=== PATIENT | female | born 1980 | race Caucasian/White ===

== ENCOUNTER 2025-02-26 08:45 | Outpatient (OUT) | payer OTHER, SELFPAY ==
--- OUTSIDE RECORDS SUMMARY | 2025-02-12 12:00 | XMS_ITS ---
Author Organization [facility] Address [address] [place], [place] [id number] Care Team Providers Care Global Coordinator Name Role Phone Devorah Lewis Primary Care Provider REASON FOR VISIT Knee pain Social History Sex Assigned At : Social History Observation Description Sex Assigned At Female Encounters Encounter Location Date Provider Diagnosis Main [address] [place], [place] [phone] 02/12/2025 Devorah Lewis Plan Of Treatment Next Appt Details Provider Name:Devorah Lewis , 05/25/2025 04:45:00 PM, [address] [place], [place], [phone], Progress Notes * Chela CHANEL EDOB:[birth year] (45 yo F)Acc No.[id number]:02/12/2025 Medical Note Patient: Kelin SHINEortega Junior :?Devorah BradshawhuseyinDOB:1980???Age:44 Y???Sex: FemaleDate:02/12/2025Phone:[phone]:[address] [place], [place] [id number] Subjective: * Chief Complaints: * 1 . Knee pain. * Medical History: Objective: * Vitals: Assessment: Plan: * Treatment: * Billing Information: * Visit Code: * Procedure Codes: * Electronic signature of JUSTINE Carlson on 02/26/2025 at 08:55 AM EDTSign off status: Pending * Provider: Og Lewis Date: 1 Generated for Printing/Faxing/eTransmitting on:?02/26/2025 08:55 AM EDT
--- OUTSIDE RECORDS SUMMARY | 2025-02-15 06:24 | XMS_ITS | Encounter Summary ---
Author Organization [facility] Address [id number] [place] [address] Care Team Providers Care Pants Cutter Name Role Phone Services, [facility] Primary Care Provider Reason for Visit * ReasonCommentsKnee Pain Encounter Details DateTypeDepartmentCare Team (Latest Contact Info)Ffrnfurnvzn01/19/2025 6:24 AM EDT - 02/15/2025 7:57 AM EDTEmergenReg[facility] - [facility] [address] [place] [id number] De Marie MD [address] [address] [place] [address] Acute pain of right knee (Primary Dx) Discharge Disposition: Home Social History Tobacco UseTypesPacks/DayYears UsedDateSmoking Tobacco: NeverSmokeless Tobacco: NeverAlcohol UseStandard Drinks/WeekCommentsNo0 (1 standard drink = 0.6 oz pure alcohol)PHQ-2AnswerDate RecordedTotal Pxqnn509ChildcareAnswerDate KnfhehmzKdquqgelhEqblgii68/10/2019EmploymentAnswerDate RecordedEmploymentUnknown 10/07/2018Hunger ScreeningAnswerDate RecordedWithin the past 12 months we worried whether our food would run out before we got money to buy more.Never True02/15/2025Within the past 12 months the food we bought just didn't last and we didn't have money to get more.Never True02/15/2025Purpose - LifeAnswerDate RecordedPurpose and direction in anykVjemwgf18/19/2021CommentsNoSex and Gender InformationValueDate RecordedSex Assigned at BirthNot on fileLegal Sex Zzcomu5312/01/2014 2:29 PM EDTGender IdentityNot on fileSexual OrientationNot on filedocumented as of this encounter Last Filed Vital Signs Vital SignReadingTime TakenCommentsBlood Jiaidqpa782/9002/15/2025 6:30 AM EDT Orcrr797602/15/2025 6:30 AM IIKHfuzpenuena79.4 ??C (97.6 ??F)02/15/2025 6:30 AM EDTRespiratory Sdtv1682 6:30 AM EDTOxygen Qrmnikxsfk12%02/15/2025 6:30 AM EDTInhaled Oxygen Concentration--Owywfc569 kg (280 lb)02/15/2025 6:30 AM EDT Cxpdce088.1 cm (5' 5 )02/15/2025 6:30 AM EDTBody Mass Index46.5902/15/2025 6:30 AM EDTdocumented in this encounter Discharge Instructions * Discharge Instructions* De Marie MD - 02/15/2025 7:07 AM EDT As we discussed please call and schedule follow up with your primary care physician in the next fewdays for re-evaluation and to discuss today's findings, your exam today suggest the knee pain may be from a ligament injury, possibly the lateral meniscus, further evaluation with MRI or other imaging may be needed if your symptoms are not improving. As we discussed I do recommend resting for the next few days, warm compress, continue the naproxen and previously prescribed steroid medication. I have also given a prescription for muscle relaxers, these medications can make you sleepy/drowsy, it is important not to drive or operate machinery while taking this medication. If you develop any redness or swelling of the knee, fevers, inability to move or bend your knee, difficulty breathing, any other worsening or concerning symptoms return to the emergency department. Below is a copy of your x-ray from today, please bring this with you when you follow up XR KNEE RT 3 VWS HISTORY: R knee pain, TTP lateral aspect, atraumatic. COMPARISON: none IMPRESSION: No acute fracture or dislocation. No sizable effusion. Degenerative changes of the knee, cortical irregularity is about the intracondylar eminence, possible sequelae prior ligamentous injury. Moderate medial compartment joint space loss. Soft tissue varicose veins. Finalized by Ahsan Rendon MD on 02/15/2025 7:30 AM * Attachments The following attachments cannot be sent through Care Everywhere. * Knee Pain ED (Persian) documented in this encounter Medications at Time of Discharge MedicationSigDispense QuantityRefillsLast FilledStart DateEnd Date cyclobenzaprine (FLEXERIL) 10 mg tablet Take 1 tablet (10 mg total) by mouth 2 (two) times a day as needed for muscle spasms (pain). 10 tablet 02/15/2025 diclofenac sodium (VOLTAREN) 1 % gel Apply 2 g topically in the morning and 2 g at noon and 2 g in the evening and 2 g before bedtime. 100 g 02/15/2025 hydroCHLOROthiazide (MICROZIDE) 12.5 mg capsule Take 1 capsule (12.5 mg total) by mouth daily. ibuprofen (MOTRIN) 600 mg tablet 3 (three) times a day. meclizine (ANTIVERT) 25 mg tablet Take 1 tablet (25 mg total) by mouth 3 (three) times a day as needed for dizziness. 30 tablet 07/23/2022 metFORMIN (GLUCOPHAGE) 500 mg tablet Take 2 tablets (1,000 mg total) by mouth in the morning and 2 tablets (1,000 mg total) before bedtime. montelukast (SINGULAIR) 10 mg tablet Take 1 tablet (10 mg total) by mouth nightly.documented as of this encounter ED Notes * De Marie MD - 02/15/2025 6:29 AM EDT Images from the original note were not included. [facility] Pt Name: Chela Grove Birthdate: 1980 Chief Complaint: Chief Complaint Patient presents with Knee Pain History of Present Illness: Patient is a 44-year-old female, history of hypothyroidism, presenting with right knee pain. Patient reports right knee pain, has been ongoing for awhile, with progressive worsening, worse with bearing weight, reports anterior and lateral knee pain, sharp/deep pain. Patient states she did see PCP recently and was prescribed medication which have not helped, and they discussed at that appointment that they would order x-ray if symptoms not improving, however patient states pain worsened before she could follow up to go to work because of the pain. Patient denies any associated fevers, numbness/weakness, chest pain, difficulty breathing, any other symptoms. Patient denies any specific injury or trauma, states pain was gradual onset. Denies any previous injury to that knee. 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[facility]) Past Surgical History: Past Surgical History: Procedure Laterality Date TONSILLECTOMY WISDOM TOOTH EXTRACTION Family History: Family History Problem Relation Age of Onset Hypothyroidism Mother Diabetes Mother Hypertension Mother Hypertension Father Arthritis Paternal Grandmother Hypertension Paternal Grandmother Diabetes Paternal Grandfather Arthritis Paternal Grandfather Diabetes Brother Breast cancer Neg Hx Social History: Social History Socioeconomic History Marital status: Tobacco Use Smoking status: Never Smokeless tobacco: Never Vaping Use Vaping status: Never Used Substance and Sexual Activity Alcohol use: No Drug use: No Sexual activity: Never Partners: Male control/protection: None Other Topics Concern Caffeine Use Yes Social Drivers of Health Food Insecurity: No Food Insecurity (02/15/2025) Hunger Screening Food Insecurity - Worry: Never True Food Insecurity - Inability: Never True Review of Systems: Review of Systems All other systems are reviewed and are negative except as noted. Physical Exam: ED Triage Vitals [02/15/25 0630] Temp Heart Rate Resp BP SpO2 36.4 ??C (97.6 ??F) 73 18 175/90 95 % Temp Source Heart Rate Source Patient Position BP Location FiO2 (%) Oral Monitor Sitting Left arm -- Vitals: 02/15/25 0630 BP: 175/90 Temp: 36.4 ??C (97.6 ??F) TempSrc: Oral Pulse: 73 Resp: 18 SpO2: 95% MAP (mmHg): 114 Height: 165.1 cm (5' 5 ) Weight: 127 kg (280 lb) 95 Physical Exam Vitals and nursing note reviewed. Constitutional: General: She is not in acute distress. HENT: Head: Normocephalic and atraumatic. Right Ear: External ear normal. Left Ear: External ear normal. Nose: Nose normal. Mouth/Throat: Mouth: Mucous membranes are moist. Eyes: Extraocular Movements: Extraocular movements intact. Conjunctiva/sclera: Conjunctivae normal. Cardiovascular: Rate and Rhythm: Normal rate and regular rhythm. Pulses: Normal pulses. Heart sounds: Normal heart sounds. Pulmonary: Effort: Pulmonary effort is normal. Breath sounds: Normal breath sounds. Abdominal: General: Abdomen is flat. Musculoskeletal: General: Tenderness present. No swelling. Normal range of motion. Cervical back: Normal range of motion. Right lower leg: No edema. Left lower leg: No edema. Comments: Right knee with full active range of motion, no instability, tenderness to the prepatellar area and lateral knee joint, no swelling or erythema/warmth, sensation intact, 2+ DP/PT pulse. Positive Rosa Maria test with internal rotation. Negative anterior/posterior drawer. Neurological: Mental Status: She is alert. Procedure: Procedures Re-evaluation: Re-Evaluation Medical Decision Making Patient is a 44-year-old female, history as above, presenting with gradual onset, atraumatic right knee pain. Vitals notable for hypertension, otherwise unremarkable. On exam there is no significant instability, no clinical signs of septic arthritis or DVT, neurovascularly intact. Positive McMurraytest with concern for possible lateral meniscus injury. X-ray performed showing degenerative changes as well as cortical irregularity with possible sequelae of prior ligamentous injury. Relaxer for pain control. I discussed likely due to arthritis versus possible meniscus injury, I discussed expectant management, close follow up with PCP and strict return precautions, discussed further imaging may be needed if symptoms are not improving. Patient was comfortable with this plan, stable for discharge home, prescription for muscle relaxers and Voltaren gel sent to pharmacy. I discussed safe use of muscle relaxers and not to drive or operate heavy machinery while using this. Amount and/or Complexity of Data Reviewed Radiology: ordered and independent interpretation performed. Decision-making details documented in ED Course. Details: Imaging was independently viewed and is notable for XR R knee with no acute fracture or dislocation, no large joint effusion, degenerative changes present. However, pending official radiologist read. Risk Prescription drug management. ED Course: ED Course as of 02/17/2557 [place] Feb 15, 2025 0733 X-ray knee right 3 views XR KNEE RT 3 VWS HISTORY: R knee pain, TTP lateral aspect, atraumatic. COMPARISON: none IMPRESSION: No acute fracture or dislocation. No sizable effusion. Degenerative changes of the knee, cortical irregularity is about the intracondylar eminence, possible sequelae prior ligamentous injury. Moderate medial compartment joint space loss. Soft tissue varicose veins. Finalized by Ahsan Rendon MD on 02/15/2025 7:30 AM [EW] 0733 Re-evaluated patient, discussed findings, discussed suspicion for possible meniscus injury, arthritis, discussed close follow up with PCP, expectant management, strict return precautions, patient is comfortable with this plan, stable for discharge home. [EW] ED Course User Index [EW] De Marie MD Clinical Impressions as of 02/17/2557 Acute pain of right knee . ED Disposition ED Disposition Discharge Date/Time [place] Feb 15, 2025 7:40 AM Comment At the time of discharge, the plan has been discussed with the patient regarding the diagnosis and prognosis. All questions have been answered. Verbal discharge instructions were discussed with the patient. The patient has been advised to follow up w ith their Primary Care Provider within 1-2 days.The patient was also instructed to return to the ED if their symptoms change, worsen, new symptoms a rise or if they have any additional concerns. Medications Prescribed this Visit Sig cyclobenzaprine (FLEXERIL) 10 mg tablet Take 1 tablet (10 mg total) by mouth 2 (two) times a day asneeded for muscle spasms (pain). diclofenac sodium (VOLTAREN) 1 % gel Apply 2 g topically in the morning and 2 g at noon and 2 g in the evening and 2 g before bedtime. . Please note that portions of this note were completed with a voice recognition program. Efforts were made to edit the dictations but occasionally words are mis-transcribed. De Marie MD 02/17/25 0105 documented in this encounter Plan of Treatment Not on file documented as of this encounter Procedures Procedure NamePriorityDate/TimeAssociated DiagnosisCommentsXR KNEE RT 3 VWSSTAT 02/15/2025 7:00 AM EDT documented in this encounter Results * X-ray knee right 3 views (02/15/2025 7:00 AM EDT)Anatomical RegionLaterality ModalityLower Extremities, MSK, KneeRightComputed RadiographySpecimen (Source) Anatomical Location / LateralityCollection Method / VolumeCollection Time Received Time02/15/2025 7:30 AM EDT Narrative 02/15/2025 7:30 AM EDT XR KNEE RT 3 VWS HISTORY: R knee pain, TTP lateral aspect, atraumatic. COMPARISON: none IMPRESSION: No acute fracture or dislocation. No sizable effusion. Degenerative changes of the knee, cortical irregularity is about the intracondylar eminence, possible sequelae prior ligamentous injury. Moderate medial compartment joint space loss. Soft tissue varicose veins. Finalized by Ahsan Rendon MD on 02/15/2025 7:30 AM Procedure Note Ahsan Rendon MD - 02/15/2025 XR KNEE RT 3 VWS HISTORY: R knee pain, TTP lateral aspect, atraumatic. COMPARISON: none IMPRESSION: No acute fracture or dislocation. No sizable effusion. Degenerative changes of the knee, cortical irregularity is about the intracondylar eminence, possible sequelae prior ligamentous injury.Moderate medial compartment joint space loss. Soft tissue varicose veins. Finalized by Ahsan Rendon MD on 02/15/2025 7:30 AM Authorizing ProviderResult TypeResult StatusDe Marie MDIMG DIAGNOSTIC IMAGING ORDERABLESFinal Result documented in this encounter Visit Diagnoses Diagnosis Acute pain of right knee- Primary documented in this encounter Administered Medications Medication OrderMAR ActionAction DateDoseRateSite cyclobenzaprine (FLEXERIL) tablet 10 mg 10 mg, oral, Once, On 02/15/25 at 0642, For 1 dose Given02/15/2025 6:57 AM EDT10 mgdocumented in this encounter Active and Recently Administered Medications Times are shown in EDT.Medication Order/ cyclobenzaprine (FLEXERIL) tablet 10 mg (COMPLETED) 10 mg, oral, Once, On 02/15/25 at 0642, For 1 dose * 0657 (Given - Provider: Jarvis Pascal RN) documented in this encounter Additional Health Concerns AssessmentNoted TimePHQ-9 Depression Total Score: 11:50 AM EDT documented as of this encounter Care Teams Team MemberRelationshipSpecialtyStart DateEnd Date [facility], [facility] [address] [place], [place] PCP - GeneralFamily Medicine07/23/22documented as of this encounter
--- OUTSIDE RECORDS SUMMARY | 2025-02-16 09:15 | XMS_ITS ---
Author Organization [facility] vices Address [address] [place], [place] [address] Care Team Providers Care Gear Setter Name Role Phone Joshua Devorah Primary Care Provider [phone] Allergies Allergen (clinical drug ingredient) Drug/Non Drug Allergy documented on EMR Reaction Allergy Type Onset Date Status SEASONAL ALLERGIES (uncoded)Comments: (Fall and Winter worse per patient)Allergy 12/29/2020ctive Reason For Referral Reason PLS EVAL & TREAT, PT COMPLETED XR, ORDERED MRI AT THIS TIME, AWAITING RESULTS Diagnosis 1 Right knee pain (M25 .561) Referral Organization Main Referring Provider First Name Devorah Referring Provider Last Name Joshua Referred Provider [facility] nt Referred Provider Specialty Orthopedics Referral Priority Routine REASON FOR VISIT [facility] ER f/u, 02-15-25, knee pain Medications Medication SIG (Take, Route, Frequency, Duration) Notes Start Date End Date Status metFORMIN HCl ER 500 MG Take 2 tablets w ith food Orally twice daily; Duration: 90 days ActiveMontelukast Sodium 10 MG1 tablet Orally Once a day; Duration: 30 days ActiveCyanocobalamin 250 MCG1 tablet Orally Once a day; Duration: 90 days 10/03/2023ctiveMedical Compression Socks -1 pair daily; Duration: 30 daysknee- high, closed toe, 20-11peFc5406/16/2022ctiveMisc. Devices -PLEASE DISPENSE APPROPRIATE SIZE CRUTCHES FOR PT; Duration: 90 daysR KNEE PAIN AND DIFFICULTY WALKING D/T INSTABLE GAIT5ActiveVitamin DActivehydroCHLOROthiazide 12.5 MG1 tablet in the morning Orally Once a day; Duration: 90 daysActivepredniSONE 20 MG1 tablet with food or milk Orally Once a day; Duration: 7 days02/11/2025 ActiveCyclobenzaprine HCl 10 MG1 tablet at bedtime as needed Orally Once a day; Duration: 30 days02/11/2025tiveNaproxen 500 MG1 tablet with food or milk as needed Orally every 12 hrs; Duration: 30 days02/11/2025tive Social History Sex Assigned At : Social History Observation Description Sex Assigned At Female Problems Problem Type SNOMED Code ICD Code Onset Dates Problem Status W/U Status Risk Notes Problem Right knee pain (080819921764988) Right k nee pain (M25.561) Activeconfirmed Vital Signs Temperature 98.0 degrees Fahrenheit 02/17/20 Weight 271 lbs 02/16/2025 Height 65.00 in 02/16/2025 BMI 45.09 kg/m2 02/16/2025 Blood pressure systolic 138 mm Hg 02/17/20 Blood pressure diastolic 76 mm Hg 025 Heart Rate 62 /min 02/16/2025 Respiratory Rate 20 /min 02/16/2025 Oximetry 100 % 02/16/2025 Weight-kg 122.92 kg 02/16/2025 Height-cm 165.10 cm 02/16/2025 Nasim Thomson 025 01:15:53 PM EDT > Encounters Encounter Location Date Provider Diagnosis Main [address] [place], [place] [id number] 02/16/2025 Devorah [facility] Right knee pain M25. 561 ; BMI 45.0-49.9, adult Z68.42 and Severe obesity (BMI >= 40) E66.01 Assessments Encounter Date Diagnosis (ICD Code) Assessment Notes Treatment Notes Treatment Clinical Notes Section Notes 02/16/2025 Right knee pain (ICD-10 - M25.56 1) Referral sent to Ortho at this time [facility] Sent RX for Crutches; pt also recommended to size her current crutches to fit her measurements MRI Order WO Contrast placed and faxed to [facility], will call pt w/ results Letter written excusing pt from work for one month from 02/16/25 - 03/19/25, informed pt this may not be accepted from [facility], may need to complete short- term disability/FMLA, PVU, will start a case. F/U 3 months or PRN 02/16/2025MI 45.0-49.9, adult (ICD-10 - Z68.42)02/16/2025Severe obesity (BMI >= 40) (ICD-10 - E66.01) Plan Of Treatment Medication Medication Name Sig Start Date Stop Date Notes Misc. Devices - PLEASE DISPENSE APPR OPRIATE SIZE CRUTCHES FOR PT; Duration: 90 days 02/16/2025 R KNEE PAIN AND DIFFICULTY WALKING D/T INSTABLE GAITTreatment Notes Assessment Notes Right knee pain Referral sent to Ortho at this time [facility] Sent RX for Crutches; pt also recommended to size her current crutches to fit her measurements MRI Order WO Contrast placed and faxed to [facility], will call pt w/ results Letter written excusing pt from work for one month from 02/16/25 - 03/19/25, informed pt this may not be accepted from [facility], may need to complete short-term disability/FMLA, PVU, will start a case. F/U 3 months or PRN Pending Test Test Name Order Date RT KNEE WO CONT 02/16/2025 Referrals Referral Date Details 02/16/2025 02/16/2025, PLS EVAL & TREAT, PT COMPLETED XR, ORDERED MRI AT THIS TIME, AWAITING RESULTS, [facility] Next Appt Details Follow Up: 05/25/25, Reason: Provider Name:Devorahwilliam Lewis , 05/25/2025 04:45:00 PM, [address], [place], [id number], Progress Notes * Chela CHANEL EDOB:[birth year] (44 yo F)Acc No.[id number]:02/16/2025 Medical Note Patient: Martha VIPULKelin HUITRONortega Junior :?Devorah LewisDOB:1980???Age:44 Y???Sex: FemaleDate:02/16/2025Phone:[phone]:[address] [place], [place] [id number] Subjective: * Chief Complaints: * P [facility] ER f/u, 02-15-25, knee pain * HPI: ???Interim History:?[facility] 02/15/25 - R KNEE PAIN Possible ligament injury of R Knee Continue Naproxen, Steroids, RX sent for Muscle Relaxer and Diclofenac Gel R Knee XR Indicated: No fracture of dislocation, degenerative changes of knee, possible sequelae orprior ligament injury, moderate medial compartment joint space loss Pt reports she cannot put too much weight on her knee Has crutches today that were her father's, not fitted for her well Would like orders for an open MRI at [facility]. * ROS: ???Negative except mentioned above in the HPI. * Medical History: * Shank Turner History: ???Menstrual history: ?LMP:?11/14/2022 ?Age of Menarche:?12 ??? control?none.?Sexual activity?not currently sexually active.?Sexually Transmitted Diseases (STDs)?none.?Last pap smear date?2017.? * OB History: ??? History:?Total pregnancies:?2 ?Full-term pregnancies:?2 * Surgical History: T onsillectomy and adenoidectomy, * Hospitalization/Major Diagno stic Procedure: D enies Past Hospitalization * Family History: F ather: alive, diagnosed with Hypertension, Heart Disease, Cancer. M other: alive, diagnosed with Hypertension, Heart Disease, Diabetes. P aternal Grand Father: alive. P aternal Grand Mother: alive. M aternal Grand Father: . M aternal Grand Mother: . B rother: alive, diagnosed with Hypertension, Diabetes. 1 brother(s) . . * Social History: ???Sexual History:?Family Planning?Are you or your partner planning on becoming in the next year if not already ??Choose not to disclose * Medications: T akingNaproxen 500 MG Tablet 1 tablet with food or milk as needed Orally every 12 hrs Cyclobenzaprine HCl 10 MG Tablet 1 tablet at bedtime as needed Orally Once a day predniSONE 20 MG Tablet 1 tablet with food or milk Orally Once a day hydroCHLOROthiazide 12.5 MG Tablet 1 tablet in the morning Orally Once a day Vitamin D Medical Compression Socks - Miscellaneous 1 pair daily , Notes to Pharmacist: knee-high, closed toe, 20-30mmHgCyanocobalamin 250 MCG Tablet 1 tablet Orally Once a day Montelukast Sodium 10 MG Tablet 1 tablet Orally Once a day metFORMIN HCl ER 500 MG Tablet Extended Release 24 Hour Take 2 tablets with food Orally twice daily Medication List reviewed and reconciled with the patientTaking Naproxen 500 MG Tablet 1 tablet with food or milk as needed Orally every 12 hrs Taking Cyclobenzaprine HCl 10 MG Tablet 1 tablet at bedtime as needed Orally Once a day Taking predniSONE 20 MG Tablet 1 tablet with food or milk Orally Once a day Taking hydroCHLOROthiazide 12.5 MG Tablet 1 tablet in the morning Orally Once a day Taking Vitamin D Taking Medical Compression Socks - Miscellaneous 1 pair daily , Notes to Pharmacist: knee-high, closed toe, 20-30mmHgTaking Cyanocobalamin 250 MCG Tablet 1 tablet Orally Once a day Taking Montelukast Sodium 10 MG Tablet 1 tablet Orally Once a day Taking metFORMIN HCl ER 500 MG Tablet Extended Release 24 Hour Take 2 tablets with food Orally twice daily Medication List reviewed and reconciled with the patient * Allergies: S EASONAL ALLERGIES: Comments: (Fall and Winter worse per patient) - Allergy - Onset Date 12/29/2020no[Allergies Verified] Objective: * Vitals: T emp:98.0F, Wt:271lbs, Ht: 65.00 in, BMI:45.09Index, BP: 140/81 mm Hg,138/76mm Hg, HR:62/min, RR:20/min, Pain scale:81-10, Oxygen sat %:100%, Wt-k.92 kg, Ht- cm: 165.10 cm, Body Surface Area: 2.37. Nasim Thomson 02/16/2025 01:15:53 PM EDT >. * Examination: ???General Examination: ?General appearance:?alert, pleasant, well-nourished and inno acute distress.?Head:?normocephalic, atraumatic.?Heart:?regular rate and rhythm without murmurs, gallops, clicks or rubs.?Lungs:?clear to auscultation bilaterally, with good air movement and no rales, rhonchi or wheezes.?Musculoskeletal:?R knee FROM, pain elicited w/ flexion and extension, weight-bearing is?difficult.?Psych:?alert and oriented x 3 , cooperative with exam, normal affect / mood , speech is clear and coherent.?CQM Exceptions: ?Currently taking Aspirin:?Aspirin Use:?No??? Assessment: * Assessment: 1.?Right knee pain - M25.561 (Primary)???2.?BMI 45.0-49.9, adult - Z68.42&# 160;??3.?Severe obesity (BMI >= 40) - E66.01??? Plan: * Treatment: Start Misc. Devices Miscellaneous, -, PLEASE DISPENSE APPROPRIATE SIZE CRUTCHES FOR PT, 90 days, 2,Refills 0, Notes to Pharmacist: R KNEE PAIN AND DIFFICULTY WALKING D/T INSTABLE GAIT.?Imaging: RT KNEE WO CONT* MRI WO Demian Kayazenon mahan 02/16/2025 01:19:39 PM EDT > OPEN MRI PT REQUEST * Notes: Referral sent to Ortho at this time [facility] Sent RX for Crutches; pt also recommended to size her current crutches to fit her measurements MRI Order WO Contrast placed and faxed to [facility], will call pt w/ results Letter written excusing pt from work for one month from 02/16/25 - 03/19/25, informed pt this may not be accepted from [facility], may need to complete short- term disability/FMLA, PVU, will start a case. F/U 3 months or PRN? Referral To: [facility]??Orthopedics ?Reason:PLS EVAL& TREAT, PT COMPLETED XR, ORDERED MRI AT THIS TIME, AWAITING RESULTS * Procedure Codes: 3 078F HTN DIAST BP < 487423P HTN SYST BP = 130 - 139 * Preventive Medicine: ??Counseling:?Communication to patient:?Counseling for nutrition provided?Yes ?Counseling for physical activity provided?Yes * Follow Up: * Billing Information: * Visit Code: 57878 Office Visit Est 20-29 minutes. * Procedure Codes: 3078F HTN DIAST BP < 80. 3075F HTN SYST BP = 130 - 139. * Sign off status: Completed true * Provider: Og Lewis Date: Generated for Printing/Faxing/eTransmitting on:?02/26/2025 08:55 AM EDT History and Physical Notes * Examination CategorySub-CategoryDetailNotesCategory NotesGeneral ExaminationGeneral appearance:alert, pleasant, well-nourished and in no acute distressHead: normocephalic, atraumaticHeart:regular rate and rhythm without murmurs, gallops, clicks or rubsLungs:clear to auscultation bilaterally, with good air movement and no rales, rhonchi or wheezesMusculoskeletal:R knee FROM, pain elicited w/ flexion and extension, weight-bearing is difficultPsych:alert and oriented x 3 , cooperative with exam, normal affect / mood , speech is clear and coherentCQM ExceptionsCurrently taking Aspirin:Aspirin Use:: No Consultation Request Notes Referral Date Referring Provider Referred Provider Not es 02/16/2025 Devorah Lewis [facility], P LS EVAL & TREAT, PT COMPLETED XR, ORDERED MRI AT THIS TIME, AWAITING RESULTS
--- OUTSIDE RECORDS SUMMARY | 2025-02-23 11:34 | XMS_ITS ---
Author Organization [facility] vices Address [address] [place], [place] [id number] Care Team Providers Care Supervisor Roving Department Name Role Phone Devorah Lewis Primary Care Provider REASON FOR VISIT xray orbits Social History Sex Assigned At : Social History Observation Description Sex Assigned At Female Encounters Encounter Location Date Provider Diagnosis Main [address] [place] [id number] 02/23/2025 Devorah Lewis Eye abnormality Q15. 9 Assessments Encounter Date Diagnosis (ICD Code) Assessment Notes Treatment Notes Treatment Clinical Notes Section Notes 02/23/2025 Eye abnormality (ICD-10 - Q15.9) Plan Of Treatment Pending Test Test Name Order Date ORBITS COMPLETE MIN 4 VWS 02/23/2025 Next Appt Details Provider Name:Devorah Lewis , 05/25/2025 04:45:00 PM, [address], [place], [id number], Progress Notes * Chela CHANEL EDOB:[birth year] (45 yo F)Acc No.[id number]:02/23/2025 Patient:?Chela CHANEL :1980???Age:45 Y???Sex:FemalePhone:[phone] Address:[address] [place] [address], [id number] Subjective: * Chief Complaints: * X ray orbits * Medical History: * Surgical History: * Hospitalization/Major Diagno stic Procedure: * Medications: Objective: * Vitals: * Physical Examination: ??? Assessment: * Assessment: 1.?Eye abnormality - Q15.9 (Primary)??? Plan: * Treatment: ?Imaging: ORBITS COMPLETE MIN 4 VWS* * Procedure Codes: * true * Date:?Generated for Printing/Faxing/eTransmitting on:?02/26/2025 08:56 AM EDT
--- OUTSIDE RECORDS SUMMARY | 2025-02-26 08:55 | XMS_ITS | Encounter Summary ---
Author Organization [facility] tem Address [id number] [address] [place] [address] Care Team Providers Care Director Manufacturing Engineering Name Role Phone Services, [facility] Primary Care Provider Encounter Details DateTypeDepartmentCare Team (Latest Contact Info)Tsiquqopsik24/19/2025Travel Social History Tobacco UseTypesPacks/DayYears UsedDateSmoking Tobacco: NeverSmokeless Tobacco: NeverAlcohol UseStandard Drinks/WeekCommentsNo0 (1 standard drink = 0.6 oz pure alcohol)PHQ-2AnswerDate RecordedTotal Tgjwo926ChildcareAnswerDate OmjiknpeFngxrsdcpTztjsha57/10/2019EmploymentAnswerDate RecordedEmploymentUnknown 10/07/2018Hunger ScreeningAnswerDate RecordedWithin the past 12 months we worried whether our food would run out before we got money to buy more.Never True02/15/2025Within the past 12 months the food we bought just didn't last and we didn't have money to get more.Never True02/15/2025Purpose - LifeAnswerDate RecordedPurpose and direction in ajfeLcopsny47/19/2021CommentsNoSex and Gender InformationValueDate RecordedSex Assigned at BirthNot on fileLegal Sex Wyyiyp7012/01/2014 2:29 PM EDTGender IdentityNot on fileSexual OrientationNot on filedocumented as of this encounter Plan of Treatment Not on file documented as of this encounter Visit Diagnoses Not on filedocumented in this encounter Additional Health Concerns AssessmentNoted TimePHQ-9 Depression Total Score: 11:50 AM EDT documented as of this encounter Care Teams Team MemberRelationshipSpecialtyStart DateEnd Date Services, [facility] [address] [place], [place] PCP - GeneralFamily Medicine07/23/22documented as of this encounter
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
--- OUTSIDE RECORDS SUMMARY | 2025-02-26 08:56 | XMS_ITS | Clinical Summary ---
Author Organization [facility] Address [address] [place] [address] Care Team Providers Care Insurance Sales Executive Name Role Phone Unavailable Primary Care Provider Unavailabl e Allergies No known active allergies Medications MedicationSigDispense QuantityRefillsLast FilledStart DateEnd DateStatus hydroCHLOROthiazide (HYDRODiuril) 12.5 MG tablet TAKE 1 TABLET BY MOUTH DAILY IN THE XDWVSJC35/22/2025Active metFORMIN XR (Glucophage-XR) 500 MG 24 hr tablet TAKE 2 TABLETS BY MOUTH TWICE DAILY WITH FOOD5Active montelukast (Singulair) 10 MG tablet Take 10 mg by mouth DailyActive Active Problems Patient Care Coordination No te Formatting of this note migh t be different from the original. [facility] No additional problems on file Family History RelationNameStatusCommentsFatherAliveMotherAlive Social History Tobacco UseTypesPacks/DayYears UsedDateSmoking Tobacco: Never Tobacco Cessation:Counseling Given: Not Answered Alcohol UseStandard Drinks/WeekCommentsNever0 (1 standard drink = 0.6 oz pure alcohol)CommentsUnknownSex and Gender InformationValueDate RecordedSex Assigned at BirthNot on fileLegal WmyZroivn20/15/2023 11:18 PM EDTGender IdentityNot on fileSexual OrientationNot on file Last Filed Vital Signs Vital SignReadingTime TakenCommentsBlood Nvfjwhxa754/7710 12:00 PM EDT Pulse--Temperature--Respiratory Rate--Oxygen Saturation--Inhaled Oxygen Concentration--Sxrrgj781 kg (270 lb)07/14/2024 4:06 PM RDFOgiokz252.1 cm (5' 5 ) 07/14/2024 4:06 PM EDTBody Mass Index44.9307/14/2024 4:06 PM EDT Plan of Treatment Health MaintenanceDue DateLast HfogNdewkkxgNwimuqhlr83/10/202410/10/2023 Influenza Vaccine (#1)501/09/2023, 02/15/2022, 05/16/2021, Additional history existsPap Smear/, 08/01/2017, 08/01/2017Cervical Cancer Ozdqplzmo60/18/2028HPV/Vzssin038011/14/2022, 03/12/2018, 08/01/2017 Insurance
--- OUTSIDE RECORDS SUMMARY | 2025-02-26 08:56 | XMS_ITS | Clinical Summary ---
Author Organization [employer] Address [id number] [address] [place] [address] Care Team Providers Care Recruitment Consultant Name Role Phone Services, [facility] Primary Care Provider Allergies No known active allergies Medications MedicationSigDispense QuantityRefillsLast FilledStart DateEnd DateStatus metFORMIN (GLUCOPHAGE) 500 mg tablet Take 2 tablets (1,000 mg total) by mouth in the morning and 2 tablets (1,000 mg total) before bedtime.Active hydroCHLOROthiazide (MICROZIDE) 12.5 mg capsule Take 1 capsule (12.5 mg total) by mouth daily.Active montelukast (SINGULAIR) 10 mg tablet Take 1 tablet (10 mg total) by mouth nightly.Active meclizine (ANTIVERT) 25 mg tablet Take 1 tablet (25 mg total) by mouth 3 (three) times a day as needed for dizziness. 30 tablet 07/23/2022ctive ibuprofen (MOTRIN) 600 mg tablet 3 (three) times a day.Active cyclobenzaprine (FLEXERIL) 10 mg tablet Take 1 tablet (10 mg total) by mouth 2 (two) times a day as needed for muscle spasms (pain). 10 tablet 5Active diclofenac sodium (VOLTAREN) 1 % gel Apply 2 g topically in the morning and 2 g at noon and 2 g in the evening and 2 g before bedtime. 100 g 5Active Active Problems ProblemNoted DateDiagnosed DateChest pain08/25/20222247Zdznowmyd01/28/2023Type 2 diabetes mellitus without complication, without long-term current use of insulin 08/25/2022re-aqcboss2208/25/2022ilateral leg edema08/25/2022Raynaud's disease 12/27/2017Vitamin D pajcbveczpjip62/30/2018 Resolved Problems ProblemNoted DateDiagnosed DateResolved DateNSVD (normal spontaneous vaginal delivery)Postpartum care following vaginal delivery Gestational diabetes mellitus (GDM) controlled on oral hypoglycemic drugPolyhydramnios in third jeqnntfbi37/09/2018 02/26/2018Gestational diabetes mellitus (GDM) in third trimester controlled on oral hypoglycemic drugHypothyroidism38 weeks gestation of fzkgdguje95 Encounters DateTypeDepartmentCare JxndGxgnivrxwoq43/19/2025 6:24 AM EDT - 02/15/2025 7:57 AM EDTEmergency [facility] [address] [place] [address] De Marie MD Acute pain of right knee (Primary Dx) Discharge Disposition: Home02/15/2025Travelfrom Last 3 Months Immunizations ImmunizationAdministration DatesNext XpbEMR3201/23/2018Tdap01/23/2018 Family History Medical HistoryRelationNameCommentsDiabetesBrotherHypertensionFatherDiabetes MotherHypertensionMotherHypothyroidismMotherArthritisPaternal Grandfather DiabetesPaternal GrandfatherArthritisPaternal GrandmotherHypertensionPaternal GrandmotherBreast cancerNeg HxRelationNameStatusCommentsBrotherAliveFatherAlive Maternal GrandfatherDeceasedMaternal GrandmotherDeceasedMotherAlivePaternal GrandfatherAlivePaternal GrandmotherAlive Social History Tobacco UseTypesPacks/DayYears UsedDateSmoking Tobacco: NeverSmokeless Tobacco: Never Tobacco Cessation:Counseling Given: Not Answered Alcohol UseStandard Drinks/WeekCommentsNo0 (1 standard drink = 0.6 oz pure alcohol)PHQ-2AnswerDate RecordedTotal Jyswu598ChildcareAnswerDate AuqkghrmZfhxqyunyMehjsdo96/10/2019EmploymentAnswerDate RecordedEmploymentUnknown 10/07/2018Hunger ScreeningAnswerDate RecordedWithin the past 12 months we worried whether our food would run out before we got money to buy more.Never True02/15/2025Within the past 12 months the food we bought just didn't last and we didn't have money to get more.Never True02/15/2025Purpose - LifeAnswerDate RecordedPurpose and direction in xhgfPvwuyax68/19/2021CommentsNoSex and Gender InformationValueDate RecordedSex Assigned at BirthNot on fileLegal Sex Rigyzv0612/01/2014 2:29 PM EDTGender IdentityNot on fileSexual OrientationNot on file Last Filed Vital Signs Vital SignReadingTime TakenCommentsBlood Vvxhjwhx027/9002/15/2025 6:30 AM EDT Vzxtj631602/15/2025 6:30 AM ZQXHmudpamqzvu28.4 ??C (97.6 ??F)02/15/2025 6:30 AM EDTRespiratory Umsl2078 6:30 AM EDTOxygen Ovepvwmint87%02/15/2025 6:30 AM EDTInhaled Oxygen Concentration--Hwhehr441 kg (280 lb)02/15/2025 6:30 AM EDT Xzovzp534.1 cm (5' 5 )02/15/2025 6:30 AM EDTBody Mass Index46.5902/15/2025 6:30 AM EDT Plan of Treatment Health MaintenanceDue DateLast DoneCommentsDiabetic Ophthalmology Exam1980 Statin Use: Lgrfbkaa1980Depression Uwyuzmyax71/27/1992Adult BMI Follow Up Plan02/23/1998Diabetic Foot Exam02/23/1998COVID-19 Vaccine ( season) /09/2023, 03/02/2022, 05/16/2021, Additional history existsInfluenza Ysrxcft18/01/, 02/15/2022, 05/16/2021, Additional history exists Pap Smear, 11/14/2022, 03/12/2018, Additional history exists Adult BMI Urpphoief29Tobacco Wdedvjnhi58 DTaP,Tdap and Td Vaccines (2 - Td or Tdap) Medical Devices Not on file Procedures Procedure NamePriorityDate/TimeAssociated DiagnosisCommentsXR KNEE RT 3 VWSSTAT 02/15/2025 7:00 AM EDT HIGH RISK HPV W/DGBVTxsanlx42/18/2023 5:09 AM EDT Encounter for screening for human papillomavirus (HPV) Encounter for screening for malignant neoplasm of cervix from Last 3 Months or Most Recently Relevant to Health Maintenance Results * X-ray knee right 3 views [...] 7:30 AM Authorizing ProviderResult TypeResult StatusDe Marie MDIMGianna DIAGNOSTIC IMAGING ORDERABLESFinal Result * High risk HPV w/yesenia (11/14/2022 5:09 AM EDT)ComponentValueRef RangeTest MethodAnalysis TimePerformed AtPathologist SignatureHpv specimen typeThinPrep 11/15/2022 5:09 AM [facility] 16NegativeNegative^Negative 11/16/2022 6:07 AM [facility] 18Negative Negative^Sounifuz55/20/2023 6:07 AM [facility] LABOther high risk hpvNegativeNegative^Mwrgmvru04/20/2023 6:07 AM [facility] LABComment: HPV types 31,33,35,39,45,52,56,58,59,66 and 68 DNA were undetectable. Specimen (Source)Anatomical Location / LateralityCollection Method / Volume Collection TimeReceived KpwgVAGYE94/18/2023 5:09 AM EDT11/15/2022 5:10 AM EDT Narrative Authorizing ProviderResult TypeResult StatusDamaris Salinas CONVERTER OPERATOR-CNPLAB BLOOD ORDERABLESFinal ResultPerforming OrganizationAddressCity/State/ZIP CodePhone Number [facility] [address] [place] [address] [facility] [address] [place] [address], [address] [place] [address] from Last 3 Months or Most Recently Relevant to Health Maintenance Insurance [place] [id number] Advance Directives * Full Code (Latest Code Status on File) Date ActivatedDate InactivatedComments01/21/2018 6:45 AM01/23/2018 7:27 PM Care Teams Team MemberRelationshipSpecialtyStart DateEnd Date Services, [facility] [address] [place], [place] PCP - GeneralFamily Medicine07/23/22
--- NOTE | 2025-02-26 09:08 | MR_ITS ---
The [address] [address] Patient Name: RONNI CHANEL MRN: [id number] date: 1980 Sex: F Assigned Patient Location: [facility] Current Patient Location: [facility] Accession/Order Number: [id number] Exam Date: 02/26/2025 09:15 Report Date: 02/26/2025 12:09 At the request of: RASHEEDA PRECIADO NP Procedure: MR knee RT wo con EXAMINATION: MRI OF THE ? KNEE CLINICAL DATA: Right Knee Pain COMPARISON: none TECHNIQUE: Multiecho, multiplanar imaging was performed with use of an extremity coil. No contrast was administered. FINDINGS: Joint:Small joint effusion with Griffin's cyst. Chondromalacia involving the patella. Joint spurring is present. No fracture. Bone marrow edema is seen involving the medial condyle of the femur as well as the medial tibial plateau. Soft tissues: Varicosities are noted. No soft tissue swelling. Quadriceps/Patellar tendon/retinaculum: Normal Muscles: Normal ACL:Normal PCL:Normal Medial Meniscus:No definitive tear. Lateral Meniscus:Tear anterior horn lateral fragment seen centrally within the joint space. MCL:Normal LCL complex: Normal MR/MR knee RT wo con IMPRESSION: DEGENERATIVE SPURRING IS SEEN INVOLVING THE KNEE WITH ASSOCIATED SMALL JOINT EFFUSION AND GRIFFIN'S CYST WELL CHONDROMALACIA PATELLA. BONE MARROW EDEMA INVOLVING THE MEDIAL CONDYLE OF THE FEMUR WELL THE MEDIAL ASPECT OF THE TIBIAL PLATEAU WITHOUT FRACTURE. TEAR OF THE ANTERIOR HORN OF THE LATERAL MENISCUS WITH SEQUESTERED FRAGMENT SEEN CENTRALLY WITHIN THE JOINT SPACE. Impression dictated by: Ten Alfaro Jr., D.O. 02/26/2025 12:09 PM Dictation Location: [place] [address] Electronically authenticated by: [id number] Y Date: 02/26/2025 12:09
--- NOTE | 2025-02-26 09:20 | XR_ITS ---
The [address] [address] Patient Name: RONNI CHANEL MRN: [id number] date: 1980 Sex: F Assigned Patient Location: [facility] Current Patient Location: [facility] Accession/Order Number: [id number] Exam Date: 02/26/2025 09:15 Report Date: 02/26/2025 09:29 At the request of: RASHEEDA PRECIADO NP Procedure: XR foreign body eye LESLEY Plain film performed by assessment of the eye HISTORY: Pre-MRI assessment No metallic density of the orbits identified. XR/XR foreign body eye LESLEY IMPRESSION: No metallic foreign body of the orbits. Impression dictated by: Balwinder Zhang M.D. 02/26/2025 9:29 AM Dictation Location: [place] [address] Electronically authenticated by: [id number] Y Date: 02/26/2025 09:29
== END 2025-02-26 08:46 | disposition home or self-care (01) ==
LOC: RAD 08:52
DX: M25.561 Pain in right knee (principal); Q15.9 Congenital malformation of eye, unspecified; M25.461 Effusion, right knee; M71.21 Synovial cyst of popliteal space [Baker], right knee; M22.41 Chondromalacia patellae, right knee; S83.281A Other tear of lateral meniscus, current injury, right knee, initial encounter
CPT/HCPCS: 70030; 73721